=== PATIENT | female | born 1990 | race Caucasian/White ===

== ENCOUNTER 2018-11-03 09:22 | Inpatient (IN) | payer BC, OTHER ==
[~2018-11-03] VITALS: Ht 152.4 cm; Wt 66.3 kg
--- NOTE | 2018-11-03 09:05 | NUR ---
HARVEY VENTURA presented to unit via WHEELCHAIR from ED, accompanied by S.O., with c/o RLQ PAIN. HARVEY VENTURA weighed, gowned, voided, and to bed. EFHM and TOCO applied, VS taken. HARVEY VENTURA oriented to bed controls, call light, TV, heat, and A/C controls.
[2018-11-03 09:20] VITALS: BP 104/71
--- NOTE | 2018-11-03 09:39 | NUR ---
DR HOUSE CALLED AND NOTIFIED OF PT ARRIVAL, C/O RLQ PAIN AND N/V SINCE AROUND 2229. DR NOTIFIED THAT PT DESCRIBES PAIN CONSTANT AND SHARP AND SOMETIMES RADIATES DOWN INTO HIP AND AROUND BACK. PT DENIES RECENT INTERCOURSE OR ANY IRREGULAR ACTIVITY, PT REPORTS HAVING REGULAR BM THIS AM. DENIES S/SX OF UTI OR VAGINAL LEAKING OR BLEEDING. PT DOES REPORT HAVING A FEW EPISODES OF BLOOD IN URINE EARLY IN . ALSO NOTIFIED OF FHR, CTX PATTERN, SVE. PT HAS HISTORY OF APPENDECTOMY IN 1999. ORDERS REC'D FOR IV FLUID BOLUS, PAIN AND NAUSEA MEDICINE, UA, AND RENAL US.
[2018-11-03] MEDS ORDERED: fentaNYL INJECTION 100 MCG/2 ML AMP ONE ×2 (09:53→12:34)
[2018-11-03] MEDS ORDERED: ONDANSETRON 4 MG/2 ML (SDV) Z0FRAN ONE (09:53)
[2018-11-03] MEDS ORDERED: NS IV 1000 ML 1,000 ML ONE (09:53)
[2018-11-03] MEDS ORDERED: NS IV 1000 ML 1,000 ML IV SCH ×2 (10:00→10:47)
[2018-11-03] MEDS: fentaNYL INJECTION 100 MCG/2 ML AMP IVP PRN ×6 (10:11→21:15)
[2018-11-03] MEDS: ONDANSETRON 4 MG/2 ML (SDV) Z0FRAN IVP PRN ×2 (10:12→21:10)
--- NOTE | 2018-11-03 10:45 | NUR ---
DR. HOUSE CALLED AND UPDATED ON PT STATUS. US REPORT PER US TECH GIVEN TO DR. HOUSE. ORDER FOR MORE ADDT'L PAIN MED, CBC, CMP, SECOND IV BOLUS.
[2018-11-03] MEDS ORDERED: morphine INJ 4 MG/ML 1 ML (VIAL/SYRINGE) ONE (10:53)
[2018-11-03] MEDS ORDERED: morphine INJ 4 MG/ML 1 ML (VIAL/SYRINGE) IVP PRN (11:00)
--- NOTE | 2018-11-03 11:00 | NUR ---
PT ASSISTED UP TO BATHROOM, +VOID OF 100ML CLEAR, DARK YELLOW URINE NOTED. URINE STRAINED AND SENT TO LAB FOR UA.
[2018-11-03 11:03] LABS: BASOPHILS % (AUTO) 0 % (0-10); EOSINOPHILS % (AUTO) 0 % (0-10); HEMATOCRIT 35 % (35-52); HEMOGLOBIN 11.7 G/DL (11.5-16.0); LYMPHOCYTES % (AUTO) 10 % (12-44); MEAN CORPUSCULAR HEMOGLOBIN 29 PG (25-34); MEAN CORPUSCULAR HGB CONC 34 G/DL (32-36); MEAN CORPUSCULAR VOLUME 85 FL (80-99); MEAN PLATELET VOLUME 9.5 FL (7.4-10.4); MONOCYTES # (AUTO) 0.7 X 10^3 (0.0-1.0); MONOCYTES % (AUTO) 7 % (0-12); NEUTROPHILS # (AUTO) 8.3 X 10^3 (1.8-7.8); NEUTROPHILS % (AUTO) 83 % (42-75); PLATELET COUNT 151 10^3/uL (130-400); WHITE BLOOD COUNT 9.9 10^3/uL (4.3-11.0)
[2018-11-03 11:05] VITALS: BP 109/57
[2018-11-03 11:14] LABS: ALANINE AMINOTRANSFERASE 13 U/L (0-55); ALBUMIN 3.5 GM/DL (3.2-4.5); ALKALINE PHOSPHATASE 93 U/L (40-136); BILIRUBIN,TOTAL 0.4 MG/DL (0.1-1.0); BUN/CREATININE RATIO 9; CALCIUM 8.6 MG/DL (8.5-10.1); CARBON DIOXIDE 18 MMOL/L (21-32); CHLORIDE 106 MMOL/L (98-107); CREATININE SERUM 0.55 MG/DL (0.60-1.30); GFR ESTIMATED > 60; GLUCOSE 98 MG/DL (70-105); POTASSIUM 3.6 MMOL/L (3.6-5.0); SODIUM 136 MMOL/L (135-145); TOTAL PROTEIN 6.3 GM/DL (6.4-8.2)
--- NOTE | 2018-11-03 11:15 | NUR ---
OK TO D/C CONTINUOUS MONITORING PER DR. HOUSE
[2018-11-03 11:17] LABS: BILIRUBIN,URINE NEGATIVE (NEGATIVE); CLARITY,URINE CLEAR; COLOR,URINE YELLOW; GLUCOSE, URINE (UA) NEGATIVE (NEGATIVE); KETONES,URINE 4+ (NEGATIVE); LEUKOCYTE ESTERASE ,URINE NEGATIVE (NEGATIVE); NITRITE,URINE NEGATIVE (NEGATIVE); PH,URINE 7 (5-9); PROTEIN,URINE 1+ (NEGATIVE); UROBILINOGEN,URINE NORMAL (NORMAL)
[2018-11-03] MEDS ORDERED: fentaNYL INJECTION 100 MCG/2 ML AMP IVP PRN (11:30)
--- NOTE | 2018-11-03 11:35 | Diagnostic Imaging Report ---
PROCEDURE: US Renal Bilateral. TECHNIQUE: Multiple Real-time grayscale images were obtained over the kidneys in various projections bilaterally. INDICATION: Right flank pain. Patient is 36 weeks . FINDINGS: The right kidney measures 13.5 x 9.0 x 7.6 cm and the left kidney measures 11.8 x 5.9 x 6.1 cm. The cortical thickness and echogenicity are normal bilaterally. The left kidney is without calculus or hydronephrosis. There is moderate right-sided hydronephrosis. The bladder is completely decompressed. IMPRESSION: Moderate right-sided hydronephrosis. No definite renal calculus is identified. Dictated by: Dictated on workstation # [id number]
[2018-11-03 11:47] LABS: BACTERIA,URINE FEW /HPF; WBC,URINE RARE /HPF
--- NOTE | 2018-11-03 12:00 | NUR ---
DR HOUSE CALLED, US REPORT AND LAB RESULTS REPORTED. DR UPDATED ON PT CONDITION. ORDER TO INCREASE FENTANYL DOSE, MAINTAIN IV FLUIDS AT 200ML/HR
--- NOTE | 2018-11-03 12:00 | NUR ---
PT VOIDS 100ML CLEAR YELLOW URINE. URINE STRAINED.
[2018-11-03] MEDS: NS IV 1000 ML 1,000 ML IV SCH ×3 (12:38→23:32)
--- NOTE | 2018-11-03 13:00 | NUR ---
PT VOIDS 150ML CLEAR, YELLOW URINE, URINE STRAINED.
--- NOTE | 2018-11-03 13:38 | NUR ---
DR HOUSE CALLED, ORDER FOR MRI OF ABDOMEN AND PELVIS W/O CONTRAST OBTAINED.
--- NOTE | 2018-11-03 15:25 | NUR ---
Pt taken to MRI via wheelchair, accompanied by radiology staff
--- NOTE | 2018-11-03 16:00 | NUR ---
Pt returned to room 315 via wheelchair accompanied by radiology staff. IV fluids restarted. Pt voided, 150ml clear, yellow urine strained.
--- NOTE | 2018-11-03 16:54 | Diagnostic Imaging Report ---
PROCEDURE: MRI pelvis without contrast. TECHNIQUE: A multiplanar/multisequence MRI of the pelvis was performed without contrast. INDICATION: Right-sided pain. FINDINGS: A gravid uterus is present with a gramajo gestation in cephalic position. The placenta is fundal and eccentric to the right. There are no MRI findings of abruption or previa. The amniotic fluid volume is grossly unremarkable. There is unilateral right-sided hydroureteronephrosis of at least moderate severity. The left kidney is normal. I am unable to identify the appendix but there is no pericecal or right lower quadrant inflammatory change to suggest underlying appendicitis. I am unable to identify a filling defect within the lumen of the dilated right ureter. The urinary bladder is empty. There is a small umbilical peritoneal hernia without herniated viscus. No pelvic or abdominal free fluid is evident. IMPRESSION: Cephalic positioned gramajo intrauterine gestation with no intrauterine pathology identified. No visualization of the appendix but no pericecal inflammation. There is right-sided hydroureteronephrosis without a visualized intraureteral filling defect. The left kidney is unobstructed and normal. No ascites. No other extrauterine abnormality. Dictated by: Dictated on workstation # [id number]
--- NOTE | 2018-11-03 17:17 | Diagnostic Imaging Report ---
PROCEDURE: MR imaging abdomen without contrast. TECHNIQUE: Multiplanar, multisequence MR imaging of the abdomen was performed without contrast. INDICATION: Right lower quadrant abdominal pain during . FINDINGS: MR images reveal probable near-term gestation in cephalic presentation. There does appear to be nuchal cord. Examination was performed to evaluate for right lower quadrant maternal pain. There is moderate right hydronephrosis. There is no evidence of appendiceal region inflammation. No placental abnormality is identified. There may be small amount of free fluid in the right lower quadrant. There are tortuous parametrial vessels, greater on the right. The bladder is compressed by the gravid uterus. There is no evidence of placental abnormality. No focal hepatic or splenic abnormality is identified. Gallbladder has a normal appearance and there is no significant biliary ductal dilatation. No definite pancreatic or adrenal gland abnormality is identified and the left kidney has a normal appearance. IMPRESSION: 1. Intrauterine gestation with likely right hydronephrosis of due to extrinsic compression on the distal ureter. The bladder is also decompressed. 2. There is no evidence of focal inflammation to indicate appendicitis or cholecystitis and no abscess is seen. 3. Parametrial vasculature is prominent, likely also due to gravid state. 4. There is probable nuchal cord. Dictated by: Dictated on workstation # [id number]
[2018-11-03 17:40] VITALS: BP 94/53
--- NOTE | 2018-11-03 17:54 | NUR ---
Dr. Clancy called and notified of MRI results, pt pain improving. Orders rec'd to switch to PO pain meds, intermittent EFM, regular diet. Continue Fentanyl order for breakthrough pain. If pt tolerating lortab 10-325 well, try to wean to lortab 5-325. Dr. Clancy will be by in the AM to see pt.
[2018-11-03] MEDS ORDERED: HYDROcodone/APAP 10 MG/325 MG (LORTAB) TAB PO ONE (18:00)
[2018-11-03] MEDS: oxyCODONE/APAP 10/325MG (PERCOCET 10) TABLET PO PRN ×2 (18:29→23:16)
[2018-11-03 19:15] VITALS: BP 104/55
--- NOTE | 2018-11-03 19:15 | NUR ---
BEDSIDE REPORT RECEIVED AND CARES RESUMED BY THIS NURSE. PT REPORTS PAIN OF 3-4/10. REPORTS THIS AN ACCEPTABLE LEVEL. PT WILL CALL IF PAIN WORSENS.
--- NOTE | 2018-11-03 21:15 | NUR ---
PT CALLS WITH PAIN INCREASING TO RIGHT LOWER QUAD. STATES PAIN IS NOW 6-7/10. REQUESTS FENTANYL. FENT 50 MCG GIVEN SIVP.
[2018-11-03] MEDS ORDERED: oxyCODONE/APAP 10/325MG (PERCOCET 10) TABLET PO PRN (21:30)
--- NOTE | 2018-11-03 21:45 | NUR ---
PT REPORTS PAIN RESOLVED. DENIES ANY NEEDS AT THIS TIME. WILL CONT TO MONITOR.
--- NOTE | 2018-11-03 23:00 | NUR ---
PT HAS GOTTEN UP TO BATHROOM. WILL RESUME EFM UPON RETURNING TO BED.
[2018-11-03 23:10] VITALS: BP 98/55
--- NOTE | 2018-11-03 23:15 | NUR ---
PT REQUESTS PERCOCET FOR RETURNED PAIN.
--- NOTE | 2018-11-04 01:30 | NUR ---
PT STATES PAIN IS WELL CONTROLLED AT THIS TIME. ASKS IF SHE CAN TRY TO LIE ON RIGHT SIDE HER HIPS ARE HURTING FROM CONSTANT LYING ON LEFT. ENCOURAGED TO TRY TO CHANGE POSITIONS AND TO TRY TO AVOID ANY POSITIONS THAT INCREASE PAIN. PT VERBALIZES UNDERSTANDING.
[2018-11-04] MEDS: fentaNYL INJECTION 100 MCG/2 ML AMP IVP PRN ×2 (01:50→22:51)
--- NOTE | 2018-11-04 01:50 | NUR ---
PT CALLS REQUESTING FENTANYL. PT STATES SHE TRIED TO ROLL OVER AND PAIN IS NOW SEVERE. FENTANYL 50 MCG ADMINISTERED SIVP.
[2018-11-04] MEDS: oxyCODONE/APAP 10/325MG (PERCOCET 10) TABLET PO PRN ×2 (04:30→10:11)
[2018-11-04] MEDS: NS IV 1000 ML 1,000 ML IV SCH ×3 (04:30→15:52)
--- NOTE | 2018-11-04 04:43 | NUR ---
PERCOCET ADMINISTERED PER PT REQUEST FOR INCREASING PAIN.
--- NOTE | 2018-11-04 05:30 | NUR ---
EFM RESUMED AT THIS TIME.
[2018-11-04 08:44] VITALS: BP 93/50
--- NOTE | 2018-11-04 09:02 | NUR ---
REFER TO LABOR FLOW SHEET.
--- NOTE | 2018-11-04 09:10 | NUR ---
PT AND S/O AMBULATING HALLWAYS.
--- NOTE | 2018-11-04 09:53 | NUR ---
PT BACK TO BED, STATES THAT SHE'S PREPPING TO REST. IV RECONNECTED, NEW BAG OF FLUIDS HUNG AND INFUSING @ 200 ML/HR/PUMP. PT VOICES THAT SHE WAS ABLE TO TAKE 2 LAPS AROUND THE UNIT, TAKING A 15 MIN BREAK IN BETWEEN. STATES THAT DURING THE 2ND LAP, PAIN COMING BACK AND NEEDED TO GO BACK TO BED. PT DENIES THE NEED FOR PAIN MEDICATION AT THIS TIME, WANTS TO SEE IF IT WILL SUBSIDE ON ITS OWN. LIGHTS OFF. S/O REMAINS AT THE BEDSIDE. CALL LIGHT WITHIN REACH.
--- NOTE | 2018-11-04 10:53 | History & Physical-OB ---
OB - Chief Complaint & HPI Date/Time Date of Admission: Date of Admission: Nov 03, 2018 at 17:50 Date seen by a Provider: Nov 04, 2018 Time Seen by a Provider: 10:49 Chief Complaint/History OB-Reason for Admission/Chief: Medical Complication Hx : 3 Hx Para: 1 Expected Date of Delivery: Dec 02, 2018 Gestational Age in Weeks: 35 Gestational Age in Days: 6 Other reason for admission: Right flank pain and right hydronephrosis. Admission Nurse Assessment Rev: Yes Allergies and Home Medications Allergies Coded Allergies: No Known Drug Allergies (Unverified , 11/03/18) Patient Home Medication List Home Medication List Reviewed: Yes OB - History Hx of Present Care: Yes Ultrasounds: Normal mid trimester US Obstetrical Complications: None Medical Complications: None Obstetrical History Hx : 3 Hx Para: 1 Patient Past Medical History previously healthy Social History/Family History Recent Infectious Disease Expo: No Immunizations Date of Influenza Vaccine: May 10, 2018 OB - Admission Exam Physical Exam Vitals: Vital Signs 11/03/18 11/04/18 23:10 08:44 Temp 97.9 Pulse 80 Resp 18 B/P (MAP) 93/50 (64) Pulse Ox 82 O2 Delivery Room Air HEENT: NCAT Heart: Rhythm Normal Lungs: Clear Abdomen: Gravid Extremities: Normal Reflexes: Normal Cervical Dilatation: 3cm Membranes: Intact Heart Rate: 120's Accelerations: Accelerations Present Decelerations: No Decelerations Short Term Variability: Present Longterm Variability: Average (6-25) Contractions on Admission: >10 Minutes Apart Labs Laboratory Tests Test 11/03/18 11:10 Range/Units Urine Color YELLOW Urine Clarity CLEAR Urine pH 7 5-9 Urine Specific [place] 1.010 L 1.016-1.022 Urine Protein 1+ H NEGATIVE Urine Glucose (UA) NEGATIVE NEGATIVE Urine Ketones 4+ H NEGATIVE Urine Nitrite NEGATIVE NEGATIVE Urine Bilirubin NEGATIVE NEGATIVE Urine Urobilinogen NORMAL NORMAL MG/DL Urine Leukocyte Esterase NEGATIVE NEGATIVE Urine RBC (Auto) NEGATIVE NEGATIVE Urine RBC NONE /HPF Urine WBC RARE /HPF Urine Squamous Epithelial Cells 5-10 /HPF Urine Crystals NONE /LPF Urine Bacteria FEW H /HPF Urine Casts NONE /LPF Urine Mucus SMALL H /LPF Urine Culture Indicated NO OB - Assessment/Plan/Diagnosis Assessment Admission Dx Right hydronephrosis with likely external obstruction from . 36 weeks of . Admission Status: Observation Reason for Inpatient Admission: Pain control. Plan Other Plan We will change patient from oral percocet to oral hydrocodone. Will try to control pain on oral pain medication and position changes. Offered urology consult if not improving. Will continue to try oral pain medication and likely will go home once pain is controlled. MILO HOUSE MD Nov 04, 2018 10:53
--- NOTE | 2018-11-04 11:06 | NUR ---
DR. HOUSE CALLED UNIT, DISCUSSED PT'S POC. NEW ORDERS RECEIVED.
--- NOTE | 2018-11-04 12:00 | NUR ---
PT UP AMBULATING THE HALLWAYS WITH S/O.
--- NOTE | 2018-11-04 12:13 | NUR ---
VISITORS AT PT'S BEDSIDE, PT INFORMED TO NOTIFY THIS RN WHEN SHE IS READY TO MOVE ROOMS; PT VERBALIZES UNDERSTANDING. NO FURTHER NEEDS VOICED.
[2018-11-04 13:12] VITALS: BP 95/53
[2018-11-04] MEDS: ACETAMINOPHEN 325 MG TABLET PO PRN ×3 (13:20→22:06)
[2018-11-04] MEDS: HYDROcodone/APAP 10 MG/325 MG (LORTAB) TAB PO PRN ×2 (15:23→19:51)
[2018-11-04 17:10] VITALS: BP 110/75
--- NOTE | 2018-11-04 17:10 | NUR ---
PT IN BED, VISITORS AT THE BEDSIDE. VS OBTAINED. NO NEEDS VOICED.
--- NOTE | 2018-11-04 17:50 | NUR ---
SHOWER SET UP, IV WRAPPED, PT PREPPING TO SHOWER. S/O AT THE BEDSIDE.
--- NOTE | 2018-11-04 18:50 | NUR ---
PT SLEEPING. S/O DENIES ANY NEEDS AT THIS TIME.
[2018-11-04 21:30] VITALS: BP 100/59
[2018-11-05] VITALS: BP 107/58
[2018-11-05] MEDS: oxyCODONE/APAP 10/325MG (PERCOCET 10) TABLET PO PRN ×3 (00:06→08:12)
[2018-11-05] MEDS: NS IV 1000 ML 1,000 ML IV SCH ×2 (00:06→07:34)
[2018-11-05] MEDS ORDERED: ZOLPIDEM 5 MG (AMBIEN) TAB PO SCH (00:30)
--- NOTE | 2018-11-05 00:38 | NUR ---
Dr Clancy called with report, order obtained for sruthi, Pt moved to recliner and will attempt to rest. No further orders at this time
[2018-11-05] MEDS ORDERED: ZOLPIDEM 5 MG (AMBIEN) TAB ONE (00:41)
--- NOTE | 2018-11-05 02:45 | NUR ---
Pt. resting in recliner. Denies needs at this time and states pain is minimal at this time. No s/s of distress noted. No questions or concerns voiced by pt. at this time. Call light within reach, will continue to monitor.
[2018-11-05 04:05] VITALS: BP 110/73
[2018-11-05 04:17] LABS: BILIRUBIN,URINE NEGATIVE (NEGATIVE); CLARITY,URINE CLEAR; COLOR,URINE YELLOW; GLUCOSE, URINE (UA) NEGATIVE (NEGATIVE); KETONES,URINE 4+ (NEGATIVE); LEUKOCYTE ESTERASE ,URINE 1+ (NEGATIVE); NITRITE,URINE NEGATIVE (NEGATIVE); PH,URINE 6 (5-9); PROTEIN,URINE NEGATIVE (NEGATIVE); UROBILINOGEN,URINE NORMAL (NORMAL)
[2018-11-05 04:28] LABS: BACTERIA,URINE MODERATE /HPF
--- NOTE | 2018-11-05 07:34 | NUR ---
THIS RN TO PT'S BEDSIDE, PT REQUESTING A WARM BLANKET. BLANKET APPLIED TO PT'S RIGHT LOWER PELVIC REGION. NEW BAG OF IV FLUIDS HUNG AND INFUSING @ 125 ML/HR/PUMP. NO FURTHER NEEDS VOICED. GOING TO ALLOW PT TO REST SOME MORE BEFORE DOING VS AND ASSESSMENT, PT VERBALIZES UNDERSTANDING. S/O AT THE BEDSIDE. CALL LIGHT WITHIN REACH.
[2018-11-05 07:54] LABS: BASOPHILS % (AUTO) 0 % (0-10); EOSINOPHILS # (AUTO) 0.1 10^3/uL (0.0-0.3); EOSINOPHILS % (AUTO) 1 % (0-10); HEMATOCRIT 31 % (35-52); LYMPHOCYTES # (AUTO) 1.1 X 10^3 (1.0-4.0); LYMPHOCYTES % (AUTO) 11 % (12-44); MEAN CORPUSCULAR HEMOGLOBIN 28 PG (25-34); MEAN CORPUSCULAR HGB CONC 32 G/DL (32-36); MEAN CORPUSCULAR VOLUME 87 FL (80-99); MEAN PLATELET VOLUME 8.9 FL (7.4-10.4); MONOCYTES # (AUTO) 0.7 X 10^3 (0.0-1.0); MONOCYTES % (AUTO) 7 % (0-12); NEUTROPHILS # (AUTO) 7.6 X 10^3 (1.8-7.8); NEUTROPHILS % (AUTO) 80 % (42-75); PLATELET COUNT 136 10^3/uL (130-400); RED CELL DISTRIBUTION WIDTH 14.5 % (10.0-14.5); WHITE BLOOD COUNT 9.5 10^3/uL (4.3-11.0)
[2018-11-05 08:00] VITALS: BP 116/76
--- NOTE | 2018-11-05 08:13 | NUR ---
PT SITTING UP IN THE CHAIR, EATING HER YOGURT AND BLUEBERRIES. VS OBTAINED. INITIAL SHIFT ASSESSMENT COMPLETED; SEE INTERVENTION FOR FURTHER. HAT EMPTIED, URINE STRAINED. (1) PERCOCET GIVEN PO; SEE EMAR FOR FURTHER. NO FURTHER NEEDS VOICED.
[2018-11-05 08:16] LABS: ALANINE AMINOTRANSFERASE 10 U/L (0-55); ALBUMIN 2.9 GM/DL (3.2-4.5); ALKALINE PHOSPHATASE 88 U/L (40-136); BILIRUBIN,TOTAL 0.5 MG/DL (0.1-1.0); BUN/CREATININE RATIO 4; CALCIUM 7.7 MG/DL (8.5-10.1); CARBON DIOXIDE 18 MMOL/L (21-32); CHLORIDE 112 MMOL/L (98-107); CREATININE SERUM 0.56 MG/DL (0.60-1.30); GFR ESTIMATED > 60; GLUCOSE 81 MG/DL (70-105); POTASSIUM 3.3 MMOL/L (3.6-5.0); SODIUM 140 MMOL/L (135-145); TOTAL PROTEIN 5.2 GM/DL (6.4-8.2)
[2018-11-05 08:26] LABS: EOSINOPHILS % (MANUAL) 2 %; LYMPHOCYTES % (MANUAL) 8 %; MONOCYTES % (MANUAL) 9 %; NEUTROPHILS % (MANUAL) 81 %; RBC MORPH NORMAL
--- NOTE | 2018-11-05 09:00 | NUR ---
DR. HOUSE TO PT'S BEDSIDE TO DISCUSS POC.
--- NOTE | 2018-11-05 09:28 | Discharge Summary ---
Diagnosis/Chief Complaint Date of Admission Nov 03, 2018 at 15:59 Date of Discharge Nov 05, 2018 at 0923 Admission Diagnosis Admission Diagnosis Right flank pain. Discharge Diagnosis Normal at 36 1/7 wga. Right hydronephrosis. Severe right-sided abdominal pain. Discharge Summary-Simple/Stand Discharge Physical Examination Allergies: Coded Allergies: No Known Drug Allergies (Unverified , 11/03/18) Vitals & I&Os Vital Sign - Last 12Hours Date Time Temp Pulse Resp B/P (MAP) Pulse Ox O2 Delivery O2 Flow Rate FiO2 11/05/18 08:00 97.8 82 18 116/76 (89) 100 Room Air Intake and Output 11/05/18 00:00 Intake Total 1650 ml Output Total 2800 ml Balance -1150 ml General Appearance: Alert, Oriented X3 HEENT: Atraumatic Respiratory: Clear to Auscultation Cardiovascular: Regular Rate Abdominal: Normal Bowel Sounds, Other (tenderness to palpation RLQ) Extremities: No Edema Skin: No Rashes Psych/Mental Status: Mental Status NL, Mood NL Hospital Course Was the Problem List Reviewed?: Yes Patient was admitted for pain control. IV fentanyl and morphine used as well as IVF. Patient's pain was controlled with oral percocet 10/325. Ultrasound shows right hydronephrosis. MRI abdomen/pelvis done and shows no clear obstruction in ureter. Dr. Moser [facility] physician at [facility] was consulted and accepted the patient in transfer. Intermittent monitoring on the unit showed reactive NSTs for baby and irregular contractions. Discharge Instructions to patient/family Please see electronic discharge instructions given to patient. Discharge Medications Reviewed and agree with Discharge Medication list on patient's Discharge Instruction sheet Copy Copies To 1: MILO HOUSE MD, KATRINA M MD Nov 05, 2018 09:28
--- NOTE | 2018-11-05 09:37 | NUR ---
REPORT TO NEGRA SANCHEZ @ [facility].
--- NOTE | 2018-11-05 09:52 | NUR ---
TRANSFER CONSENT SIGNED BY PT AT THIS TIME.
--- NOTE | 2018-11-05 09:57 | NUR ---
PT DISCHARGED FROM [facility] TO [facility] VIA W/C IN STABLE CONDITION PER THIS RN AND PT'S S/O. PT BEING TRANSFERRED TO [facility] VIA PR[facility] AUTO.
== END 2018-11-05 09:57 | disposition short-term general hospital (02) | DRG 776 ==
LOC: WSo 09:22 → LDRP 09:22 → WSo 18:50 → LDRP 11-04 13:05 → OBSVTOIN 11-04 15:59
PROVIDERS: ADMIT Family Medicine; ATTEND Family Medicine
DX: O99.89 Other specified diseases and conditions complicating pregnancy, childbirth and the puerperium (principal); N13.30 Unspecified hydronephrosis; Z3A.35 35 weeks gestation of pregnancy
CPT/HCPCS: 36415; 72195; 74181; 76770; 80053; 81000; 85007; 85025; 85027

== ENCOUNTER 2018-11-21 06:57 | Inpatient (IN) | payer BC ==
--- NOTE | 2018-11-21 06:57 | NUR ---
HARVEY VENTURA presented to unit via ambulation from home, accompanied by s.o. and family member for induction of labor. HARVEY VENTURA weighed, gowned, voided, and to bed. EFHM and TOCO applied, VS taken. HARVEY VENTURA oriented to bed controls, call light, TV, heat, and A/C controls.
--- OUTSIDE RECORDS SUMMARY | 2018-11-21 07:05 | XMS REPORT | Continuity of Care Document ---
Author Organization Unknown Address Unknown Allergies There is no data. Medications There is no data. Problems There is no data. Procedures There is no data. Results There is no data. Encounters ACCT No. Visit Date/Time Discharge Status Pt. Type Provider Facility Loc./Unit Complaint [id number] 11/17/2018 10:00:00 11/17/2018 23:59:59 [facility] Outpatient [facility]
[2018-11-21] MEDS ORDERED: METOCLOPRAMIDE INJ 10 MG/2 ML (REGLAN) ONE (08:06)
[2018-11-21] MEDS ORDERED: CITRIC ACID/SOB CIT (BICITRA) 30 ML UDC ONE (08:06)
[2018-11-21] MEDS ORDERED: LACTATED RINGERS 1,000 ML IV ONE (08:06)
[2018-11-21] MEDS ORDERED: FAMOTIDINE 20MG/2ML IV (PEPCID) ONE (08:07)
[2018-11-21] MEDS ORDERED: ONDANSETRON 4 MG/2 ML (SDV) Z0FRAN ONE (08:37)
[2018-11-21] MEDS ORDERED: OXYTOCIN/NORMAL SALINE 500 ML IV ONE ×3 (08:37→10:52)
[2018-11-21] MEDS ORDERED: SUCCINYLCHOLINE INJ 100 MG/5 ML SYR ONE (08:37)
[2018-11-21] MEDS ORDERED: proPOfol 200 MG/20 ML (DIPRIVAN) VIAL IV ONE (08:37)
[2018-11-21] MEDS ORDERED: ROCURONIUM 10 MG/ML 5 ML SYRINGE IV ONE (08:37)
[2018-11-21] MEDS ORDERED: NEOSTIGMINE 1 MG/ML 5 ML SYRINGE ONE (08:40)
[2018-11-21] MEDS ORDERED: GLYCOPYRROLATE 0.2 MG/ML (ROBINUL) 2 ML VIAL ONE (08:40)
[2018-11-21] MEDS ORDERED: morphine INJ 10 MG/ML 1ML (SYR OR VIAL) ONE (08:44)
[2018-11-21] MEDS ORDERED: ceFAZolin INJECTION 1,000 MG VIAL IV ONE (08:45)
[2018-11-21] MEDS ORDERED: SEVOFLURANE (ULTANE) 15 ML INHAL SOLN ONE (08:46)
[2018-11-21] MEDS ORDERED: KETOROLAC 30 MG/ML VIAL ONE (08:50)
[2018-11-21] MEDS ORDERED: fentaNYL INJECTION 100 MCG/2 ML AMP ONE (08:50)
[2018-11-21] MEDS ORDERED: MEPERIDINE (DEMEROL) INJ 50 MG/ML ONE (08:51)
[2018-11-21 08:58] LABS: BASOPHILS % (AUTO) 0 % (0-10); EOSINOPHILS # (AUTO) 0.2 10^3/uL (0.0-0.3); EOSINOPHILS % (AUTO) 1 % (0-10); HEMATOCRIT 34 % (35-52); HEMOGLOBIN 11.5 G/DL (11.5-16.0); LYMPHOCYTES # (AUTO) 2.2 X 10^3 (1.0-4.0); LYMPHOCYTES % (AUTO) 21 % (12-44); MEAN CORPUSCULAR HEMOGLOBIN 29 PG (25-34); MEAN CORPUSCULAR HGB CONC 34 G/DL (32-36); MEAN CORPUSCULAR VOLUME 85 FL (80-99); MEAN PLATELET VOLUME 8.9 FL (7.4-10.4); MONOCYTES # (AUTO) 0.9 X 10^3 (0.0-1.0); MONOCYTES % (AUTO) 9 % (0-12); NEUTROPHILS # (AUTO) 7.5 X 10^3 (1.8-7.8); NEUTROPHILS % (AUTO) 69 % (42-75); PLATELET COUNT 235 10^3/uL (130-400); RED CELL DISTRIBUTION WIDTH 14.6 % (10.0-14.5); WHITE BLOOD COUNT 10.8 10^3/uL (4.3-11.0)
[2018-11-21] MEDS ORDERED: ONDANSETRON 4 MG/2 ML (SDV) Z0FRAN IVP PRN ×2 (09:00→09:15)
[2018-11-21] MEDS ORDERED: MEASLES,MUMPS,RUBELLA 1 EA INJ SC SCH (09:00)
[2018-11-21] MEDS ORDERED: MINERAL OIL CONCENTRATE 99.9% 15 ML UDC TOP PRN (09:00)
[2018-11-21] MEDS ORDERED: TETANUS,DIPTH,PERTUSS P/F (BOOSTRIX) 0.5 ML VIAL IM SCH (09:00)
[2018-11-21] MEDS ORDERED: MEPERIDINE (DEMEROL) INJ 50 MG/ML IVP ONE (09:15)
[2018-11-21] MEDS ORDERED: morphine INJ 10 MG/ML 1ML (SYR OR VIAL) IVP ONE (09:15)
[2018-11-21] MEDS ORDERED: fentaNYL INJECTION 100 MCG/2 ML AMP IVP ONE (09:15)
[2018-11-21] MEDS ORDERED: KETOROLAC 30 MG/ML VIAL IVP ONE (09:15)
[2018-11-21 09:21] LABS: BILIRUBIN,URINE NEGATIVE (NEGATIVE); CLARITY,URINE CLEAR; COLOR,URINE YELLOW; GLUCOSE, URINE (UA) NEGATIVE (NEGATIVE); KETONES,URINE NEGATIVE (NEGATIVE); LEUKOCYTE ESTERASE ,URINE 1+ (NEGATIVE); NITRITE,URINE NEGATIVE (NEGATIVE); PH,URINE 6.5 (5-9); PROTEIN,URINE 1+ (NEGATIVE); UROBILINOGEN,URINE NORMAL (NORMAL)
[2018-11-21 09:36] LABS: BACTERIA,URINE FEW /HPF
--- NOTE | 2018-11-21 09:39 | Diagnostic Imaging Report ---
INDICATION: Emergency , no instrument count. FINDINGS: A supine view of the abdomen demonstrates a nasogastric tube in place. There are no abnormal foreign bodies. IMPRESSION: Negative abdomen for foreign body. Dictated by: Dictated on workstation # [id number]
--- NOTE | 2018-11-21 10:00 | NUR ---
to room 307 via cart from recovery room. a/o x3 dr alatorre, and family at bedside. denies pain.
[2018-11-21 10:45] VITALS: BP 119/74
--- NOTE | 2018-11-21 10:45 | NUR ---
ffu/0 light flow no clots. vitals taken. family at bedside, request pain medications.
--- NOTE | 2018-11-21 10:55 | NUR ---
OXYTOCIN HUNG INFUSING VIA PUMP ORDERED. REVIEWED ROOM SERVICE AND DIET ORDER VERBALIZED UNDERSTANDING.
[2018-11-21] MEDS: HYDROmorphone 2 MG/ML VIAL (DILAUDID) IV PRN ×2 (11:00→14:00)
--- NOTE | 2018-11-21 11:00 | NUR ---
DILAUDID GIVEN IV ORDERED FOR PAIN. SEE EMAR. FRESH ICE WATER PLACED AT BEDSIDE. DENIES FURTHER NEED AT THIS TIME.
[2018-11-21] MEDS: HYDROcodone/APAP 5 MG/325 MG (LORTAB) TAB PO PRN ×4 (12:45→23:20)
--- NOTE | 2018-11-21 13:21 | OPERATIVE REPORT ---
DATE OF SERVICE: PREOPERATIVE DIAGNOSES: 1. A 28-year-old G2, P1 at 39 weeks gestation. 2. distress and intolerance of labor. POSTOPERATIVE DIAGNOSES: 1. A 28-year-old G2, P1 at 39 weeks gestation. 2. distress and intolerance of labor. PROCEDURE: Emergency primary low transverse section. SURGEON: Cmaeron Del Rio DO ANESTHESIA: General. ESTIMATED BLOOD LOSS: 400 mL. URINE OUTPUT: 100 mL clear at the end of the procedure. FLUIDS: 1000 mL of lactated Ringer solution. FINDINGS: A live male , weight pending in respiratory distress. Apgars of 2, 3 and 7. Grossly normal appearing uterus, bilateral fallopian tubes and ovaries. INDICATIONS FOR PROCEDURE: This 28-year-old female patient was seeking care with Dr. Clancy. She was admitted this morning for induction of labor. Artificial rupture of membranes were performed this morning by Dr. Watkins at which point I was consulted and asked to evaluate the patient as heart rate had dropped down into the 60s for a prolonged period of time lasting greater than 3 minutes by the time I got into the room to evaluate. Ultrasound was set up in the room and bedside ultrasound was performed, which showed a fetus in a vertex presentation, little to no amniotic fluid likely secondary to recent rupture of membranes, but there were also findings consistent with a hand presentation. There was no evidence of cord prolapse, both on exam or on ultrasound, but multiple position changes in Trendelenburg and hands and knees did not resolve the heart tone issue. heart tracing continued to be in the 70s to 80s for nearly 5 minutes at which point I called for emergency category 1 . Risks were briefly reviewed and consent was obtained by the patient. The patient was taken to the operating room. OPERATIVE REPORT IN DETAIL: Once in the operating room, a timeout was performed. Once anesthesia was administered and I am giving greenlight to begin. I made a Pfannenstiel skin incision with a knife and carried down underlying fascia. Using the knife, I bluntly dissected the subcutaneous tissue off of the underlying fascia. Fascial incision was made with a knife and the fascial incision was extended laterally using blunt traction. The superior aspect of the fascial incision was then grasped with Roque clamps, tented upward and dissected off the underlying rectus muscle using Pritchett scissors, which allows me to dissect the midline of the rectus abdominis muscles, which I then using blunt traction. I entered the peritoneum using blunt traction and extended this allowing placement of an Deepak ring retractor in the peritoneal incision, which offers excellent lateral sidewall retraction. I then identified the lower uterine segment and made a low transverse incision to the uterine segment. All membranes were visualized. The uterine incision extended using lateral traction. The 's head is in vertex presentation. The infant's head was elevated up to the incision, where it delivered through the incision. Anterior and posterior shoulders delivered and it has been brought on to the operative field where the cord was doubly clamped and cut and infant was handed off urgently to Dr. Marie who was present for delivery. Cord blood was collected as well as cord gases. Three-vessel cord was intact, placenta was delivered spontaneously thereafter. IV Pitocin was initiated to facilitate uterine contraction. Uterine fundus was confirmed by manual massage. Uterus was then exteriorized and cleared of all endometrial clots and debris. I then closed the uterine incision using 0 Vicryl suture in a running locked fashion. A second layer of imbricating 0 Monocryl was placed. Excellent hemostasis was noted after doing this. I then placed the uterus back in the pelvis and copiously irrigated the pelvis using normal saline. Once again, no active bleeding noted from any of my dissection planes. I placed Interceed antiadhesive over my low transverse incision and proceeded to close the peritoneum using 3-0 Vicryl suture in running fashion. Rectus muscle reapproximated using 3-0 Vicryl suture in an interrupted fashion. The fascia was reapproximated using 0 Vicryl suture in running fashion. Subcutaneous tissues were approximated using 3-0 plain in interrupted subcutaneous stitch and skin reapproximated using 4-0 Monocryl running subcuticular. Skin Affix and a sterile dressing was placed over the incision. A 1 gram of Ancef was given intraoperatively for infection prophylaxis. A flat plate KUB is ordered postoperatively due to insufficient time to perform a preoperative count and it appears negative on my read. The patient tolerated the procedure well and sent to recovery room in stable condition. Job ID: [id number] DocumentID: [id number] Dictated Date: 11/21/2018 09:10:01 Property Consultant Date: 11/21/2018 13:20:43 Dictated By: DO GATO MUJICA
[2018-11-21 14:00] VITALS: BP 117/72
[2018-11-21] MEDS ORDERED: CATHETER FLUSH 10 ML SYR IV SCH ×2 (14:00)
[2018-11-21] MEDS ORDERED: D5 LR IV SOLUTION 1,000 ML IV ONE (14:57)
[2018-11-21] MEDS: KETOROLAC 30 MG/ML VIAL IV SCH ×2 (17:20→23:30)
[2018-11-21 20:30] VITALS: BP 101/68
[2018-11-21] MEDS: DOCUSATE SODIUM 100 MG (COLACE) CAP PO SCH (20:40)
[2018-11-21] MEDS ORDERED: IBUP-844 PO (21:54)
[2018-11-21] MEDS ORDERED: DOCU100C37 PO (21:54)
[2018-11-21] MEDS ORDERED: ACHD5005 PO (21:54)
--- NOTE | 2018-11-21 21:55 | Discharge Inst-Women's Service ---
Discharge Inst-Women's Serv Depart Medication/Instructions New, Converted or Re-Newed RX: RX on Chart Final Diagnosis POD 1 PLTCS Consults/Follow Up Additional Follow Up: Yes Orders/Referrals Dr. Del Rio i n7-[address] Clancy in 6 weeks Activity Activity: Activity as Tolerated NO SMOKING: NO SMOKING Nothing Inside Vagina: No Douching, No [place], No Tampons Diet Discharge Diet: No Restrictions Symptoms to Report to : Bleeding Excessive, Pain Increased, Fever Over 101 Degrees F, Vaginal Bleeding Increase, Questions/Concerns For Any Problems or Questions: Contact Your Physician Skin/Wound Care Infection Signs and Symptoms: Increased Redness, Foul Odor of Wound, Increased Drainage, Skin Itchy or Has a Rash, Increased Swelling, Temperature Above 101 F Operative Area Clean and Dry: Keep Incision Clean/Dry Stitches/Shelia/Dermabond: Dermabond, Care of Stitches Bathing Instructions: EH Roa DO Nov 21, 2018 21:55
[2018-11-22 01:00] VITALS: BP 101/67
[2018-11-22 06:00] VITALS: BP 115/77
[2018-11-22] MEDS: HYDROcodone/APAP 5 MG/325 MG (LORTAB) TAB PO PRN ×2 (06:08→12:04)
[2018-11-22] MEDS: KETOROLAC 30 MG/ML VIAL IV SCH (06:09)
[2018-11-22 07:02] LABS: BASOPHILS % (AUTO) 0 % (0-10); EOSINOPHILS # (AUTO) 0.1 10^3/uL (0.0-0.3); EOSINOPHILS % (AUTO) 0 % (0-10); HEMATOCRIT 28 % (35-52); HEMOGLOBIN 9.3 G/DL (11.5-16.0); LYMPHOCYTES # (AUTO) 1.4 X 10^3 (1.0-4.0); LYMPHOCYTES % (AUTO) 11 % (12-44); MEAN CORPUSCULAR HEMOGLOBIN 28 PG (25-34); MEAN CORPUSCULAR HGB CONC 33 G/DL (32-36); MEAN CORPUSCULAR VOLUME 86 FL (80-99); MEAN PLATELET VOLUME 8.6 FL (7.4-10.4); MONOCYTES # (AUTO) 0.9 X 10^3 (0.0-1.0); MONOCYTES % (AUTO) 7 % (0-12); NEUTROPHILS # (AUTO) 10.3 X 10^3 (1.8-7.8); NEUTROPHILS % (AUTO) 82 % (42-75); PLATELET COUNT 179 10^3/uL (130-400); RED CELL DISTRIBUTION WIDTH 14.9 % (10.0-14.5); WHITE BLOOD COUNT 12.6 10^3/uL (4.3-11.0)
--- NOTE | 2018-11-22 08:17 | Anesthesia-General Post-Op ---
General Patient Condition Mental Status/LOC: Same as Preop Cardiovascular: Satisfactory Nausea/Vomiting: Absent Respiratory: Satisfactory Pain: Controlled Complications: Absent Post Op Complications Complications None Follow Up Care/Instructions Patient Instructions None needed. Anesthesia/Patient Condition Patient Condition Patient is doing well, no complaints, stable vital signs, no apparent adverse anesthesia problems. No complications reported per nursing. [place] [facility] [place]: LALI Venegas CRNA Nov 22, 2018 08:17
[2018-11-22] MEDS: DOCUSATE SODIUM 100 MG (COLACE) CAP PO SCH (08:32)
[2018-11-22 08:34] VITALS: BP 110/74
--- NOTE | 2018-11-22 08:35 | NUR ---
THIS RN TO BEDSIDE, PT IN BED. VISITOR AT THE BEDSIDE. COLACE GIVEN PO; SEE EMAR FOR FURTHER. VS OBTAINED. INITIAL SHIFT ASSESSMENT COMPLETED; SEE INTERVENTION FOR FURTHER.
--- NOTE | 2018-11-22 08:45 | NUR ---
0826 IV DC'D; SEE INTERVENTION FOR FURTHER. SHOWER SET UP. 8300 DR BRITO TO PT'S BEDSIDE.
--- NOTE | 2018-11-22 08:55 | NUR ---
NEW ORDERS RECEIVED PER FOR DISCHARGE.
--- NOTE | 2018-11-22 09:00 | Postpartum Progress Note ---
Note Note Day # 1 Subjective: Patient is without complaints. Ambulating, voiding. Tolerating a regular diet without nausea or vomiting. Normal lochia. Pain is well controlled with oral pain medications. Objective: Physical Exam: General - Alert and oriented, no apparent distress Abdomen - Soft, appropriately tender to palpation, non-distended, fundus firm at umbilicus Extremities - no edema, negative Tatiana's bilaterally Incision- c/d/i Assessment: POD 1 PLTCS Acute blood loss anemia Plan: Routine care. Encourage breast feeding. Encourage ambulation. Ferrous sulfate supplementation. Plan for discharge today due to patients infant being transfered Vitals - Labs Vital Signs - I&O Vital Signs Date Time Temp Pulse Resp B/P (MAP) Pulse Ox O2 Delivery O2 Flow Rate FiO2 11/22/18 06:00 99.2 112 16 115/77 (90) Room Air 11/22/18 04:00 Room Air 11/22/18 01:00 98.6 88 16 101/67 (78) 97 Room Air 11/21/18 20:30 97.8 98 18 101/68 (79) 97 Room Air 11/21/18 14:00 98.9 96 20 117/72 (87) 96 Room Air 11/21/18 10:45 98.8 98 20 119/74 (89) 96 Room Air 11/21/18 10:00 97.8 18 97 Room Air 11/21/18 09:50 18 97 Room Air 11/21/18 09:40 20 98 Room Air 11/21/18 09:30 20 100 Nasal Cannula 3 11/21/18 09:20 20 100 OxyMask 10 11/21/18 09:10 20 100 OxyMask 10 11/21/18 09:06 97.6 21 95 OxyMask 10 I & O 11/22/18 07:00 Intake Total 2000 ml Output Total 2335 ml Balance -335 ml Labs Laboratory Tests 11/22/18 06:45: White Blood Count 12.6H, Red Blood Count 3.28L, Hemoglobin 9.3L, Hematocrit 28L , Mean Corpuscular Volume 86, Mean Corpuscular Hemoglobin 28, Mean Corpuscular Hemoglobin Concent 33, Red Cell Distribution Width 14.9H, Platelet Count 179, Mean Platelet Volume 8.6, Neutrophils (%) (Auto) 82H, Lymphocytes (%) (Auto) 11L , Monocytes (%) (Auto) 7, Eosinophils (%) (Auto) 0, Basophils (%) (Auto) 0, Neutrophils # (Auto) 10.3H, Lymphocytes # (Auto) 1.4, Monocytes # (Auto) 0.9, Eosinophils # (Auto) 0.1, Basophils # (Auto) 0.0 EH BRITO DO Nov 22, 2018 09:00
--- NOTE | 2018-11-22 09:25 | NUR ---
[facility] CALLED INTO [facility], VOICE MESSAGE LEFT.
[2018-11-22] MEDS ORDERED: FERR325T18 PO (09:28)
[2018-11-22] MEDS ORDERED: IBUPROFEN 600 MG (MOTRIN) TAB PO SCH (12:00)
--- NOTE | 2018-11-22 12:13 | NUR ---
MEDS GIVEN PO; SEE EMAR FOR FURTHER. PT VOICES THAT SHE'S ALREADY HAD THE TDAP VACCINATION WITH THIS . DISCHARGE PAPERS PROVIDED AND REVIEWED WITH PT, PT VERBALIZES UNDERSTANDING AND DENIES ANY QUESTIONS AT THIS TIME. RX'S X3 AND FOLLOW UP APPOINTMENT CARDS ALSO PROVIDED AND PLACED INTO DISCHARGE FOLDER. S/O TO PT'S BEDSIDE. ROOM SERVICE DELIVERING LUNCH. PAPER SIGNED. BAG PROVIDED PER REQUEST FOR BREAST PUMP PARTS.
--- NOTE | 2018-11-22 13:44 | NUR ---
PT DISCHARGED FROM -307 TO PERSONAL AUTO VIA W/C IN STABLE CONDITION ACC BY S/O AND THIS RN.
--- NOTE | 2018-12-13 15:29 | History & Physical-OB ---
OB - Chief Complaint & HPI Date/Time Date of Admission: Date of Admission: Nov 21, 2018 at 06:57 Date seen by a Provider: Nov 21, 2018 Time Seen by a Provider: 09:00 Chief Complaint/History OB-Reason for Admission/Chief: Induction of Labor Hx : 3 Hx Para: 2 Expected Date of Delivery: Dec 02, 2018 Gestational Age in Weeks: 38 Gestational Age in Days: 4 Indication for induction: maternal discomfort, other (right maternal hydronephrosis and pain) Admission Nurse Assessment Rev: Yes Allergies and Home Medications Allergies Coded Allergies: No Known Drug Allergies (Unverified , 11/03/18) Home Medications Docusate Sodium 100 Mg Capsule, 100 MG PO BID PRN for CONSTIPATION-1ST LINE Prescribed by: EH BRITO on 11/21/182153 Ferrous Sulfate 325 Mg Tablet, 325 MG PO DAILY Prescribed by: ELIZABETH SHI on 11/22/18927 Hydrocodone Bit/Acetaminophen 1 Tab Tab, 2 TAB PO Q6HR PRN for PAIN-MODERATE Prescribed by: EH BRITO on 11/21/182153 Ibuprofen 600 Mg Tablet, 600 MG PO Q6HR Prescribed by: EH BRITO on 11/21/182153 Patient Home Medication List Home Medication List Reviewed: Yes OB - History Hx of Present Care: Yes Ultrasounds: Normal mid trimester US Obstetrical Complications: None Medical Complications: None Delivery History Adverse Rxn to Tranfusion: No Patient Past Medical History previously healthy Social History/Family History Alcohol Use: Denies Use Recreational Drug Use: No Immunizations Hepatitis A: Yes Hepatitis B: Yes Date of Influenza Vaccine: May 10, 2018 OB - Admission Exam Physical Exam HEENT: NCAT Lungs: Clear Abdomen: Soft Extremities: Normal Reflexes: Normal Cervical Dilatation: other (delivered) OB - Assessment/Plan/Diagnosis Assessment Assessment: induction of labor Admission Dx Induction of labor at 38 4/7 wga that resulted in stat due to distress after rupture of membranes. Admission Status: Inpatient Order (span 2 midnights) Reason for Inpatient Admission: . Plan Plan: Section MILO HOUSE MD December 13, 2018 15:29
== END 2018-11-22 13:44 | disposition home or self-care (01) | DRG 787 ==
LOC: LDRP 06:57
PROVIDERS: ADMIT Family Medicine; ATTEND Family Medicine
PROC: 10907ZC Drainage of Amniotic Fluid, Therapeutic from Products of Conception, Via Natural or Artificial Opening (ICD-10-PCS; 2018-11-21)
PROC: 10D00Z1 Extraction of Products of Conception, Low, Open Approach (ICD-10-PCS; principal; 2018-11-21 08:16)
DX: O26.833 Pregnancy related renal disease, third trimester (principal); N13.30 Unspecified hydronephrosis; O76 Abnormality in fetal heart rate and rhythm complicating labor and delivery; O64.8XX0 Obstructed labor due to other malposition and malpresentation, not applicable or unspecified; O90.81 Anemia of the puerperium; D62 Acute posthemorrhagic anemia; Z3A.38 38 weeks gestation of pregnancy; Z37.0 Single live birth
CPT/HCPCS: 36415; 74018; 81000; 85025; 86850; 86900; 86901; 87077; 87088; 87186; 88307; 94664

== ENCOUNTER → 2020-01-28 | Outpatient (CLI) | payer BC ==
[~2020-01-28] MED LIST: ACHD5005 PO; DOCU100C37 PO; FERR325T18 PO; IBUP-844 PO
[2020-01-28 11:49] LABS: HEMATOCRIT 40 % (35-52); HEMOGLOBIN 13.7 G/DL (11.5-16.0); MEAN CORPUSCULAR HEMOGLOBIN 30 PG (25-34); MEAN CORPUSCULAR HGB CONC 34 G/DL (32-36); MEAN CORPUSCULAR VOLUME 87 FL (80-99); PLATELET COUNT 269 10^3/uL (130-400); RED CELL DISTRIBUTION WIDTH 12.6 % (10.0-14.5); WHITE BLOOD COUNT 7.2 10^3/uL (4.3-11.0)
[2020-01-28 11:50] LABS: BASOPHILS % (AUTO) 0 % (0-10); EOSINOPHILS # (AUTO) 0.1 10^3/uL (0.0-0.3); EOSINOPHILS % (AUTO) 1 % (0-10); LYMPHOCYTES # (AUTO) 1.5 X 10^3 (1.0-4.0); LYMPHOCYTES % (AUTO) 21 % (12-44); MEAN PLATELET VOLUME 8.6 FL (7.4-10.4); MONOCYTES # (AUTO) 0.6 X 10^3 (0.0-1.0); MONOCYTES % (AUTO) 8 % (0-12); NEUTROPHILS % (AUTO) 70 % (42-75)
[2020-01-28 11:54] LABS: ALANINE AMINOTRANSFERASE 8 U/L (0-55); ALBUMIN 4.7 GM/DL (3.2-4.5); ALKALINE PHOSPHATASE 48 U/L (40-136); BILIRUBIN,TOTAL 0.5 MG/DL (0.1-1.0); BUN/CREATININE RATIO 13; CALCIUM 9.9 MG/DL (8.5-10.1); CARBON DIOXIDE 22 MMOL/L (21-32); CHLORIDE 103 MMOL/L (98-107); CREATININE SERUM 0.76 MG/DL (0.60-1.30); GFR ESTIMATED > 60; GLUCOSE 100 MG/DL (70-105); POTASSIUM 4.2 MMOL/L (3.6-5.0); SODIUM 139 MMOL/L (135-145); TOTAL PROTEIN 7.5 GM/DL (6.4-8.2)
== END ==
LOC: LAB FS 10:56
PROVIDERS: ATTEND Nurse Practitioner Family
DX: R00.2 Palpitations (principal)
CPT/HCPCS: 36415; 80053; 83735; 84443; 85025